=== PATIENT | male | born 1980 | race Hispanic/Latino ===

== ENCOUNTER → 2020-02-08 | Outpatient (CLI) | payer BC ==
[~2020-02-08] MED LIST: AMLO10TA4 PO; LISI40TA4 PO; WARF2TAB57 PO
== END | disposition home or self-care (01) ==
LOC: SHCH 08:04
PROVIDERS: ATTEND Internal Medicine Cardiovascular Disease
DX: Z95.4 Presence of other heart-valve replacement (principal)
CPT/HCPCS: 93306